=== PATIENT | female | born 1990 | race Caucasian/White ===

== ENCOUNTER 2019-10-23 00:22 | Emergency (ER) | payer BC ==
[~2019-10-23] VITALS: Ht 172.7 cm; Wt 64.0 kg
[2019-10-23 00:52] VITALS: BP 137/91
[2019-10-23] MEDS ORDERED: HYDROcodone/acetaminophen 10/325mg tab PO STA (00:54)
--- NOTE | 2019-10-23 00:54 | NUR ---
informed MD that pt is laying in bed crying, he said I could give her a norco 10/so ordered.
[2019-10-23] MEDS ORDERED: albuterol 2.5 MG/3 ML nebule NEB ONE (01:40)
[2019-10-23] MEDS ORDERED: benzonatate 100mg capsule PO ONE (01:40)
[2019-10-23] MEDS ORDERED: ALBU6.7H9 INH (01:40)
[2019-10-23] MEDS ORDERED: dexamethasone 4mg tablet PO ONE (01:40)
[2019-10-23] MEDS ORDERED: BENZ-16 PO (01:40)
[2019-10-23] MEDS ORDERED: diphenhydrAMINE 25 MG/10 ML UD oral solution PO ONE (01:40)
[2019-10-23] MEDS ORDERED: NAPR-56 PO (01:40)
== END 2019-10-23 02:06 | disposition home or self-care (01) ==
LOC: ER 00:24
DX: R07.81 Pleurodynia (principal); B34.9 Viral infection, unspecified; R05 Cough; R09.3 Abnormal sputum; J45.909 Unspecified asthma, uncomplicated; Z88.2 Allergy status to sulfonamides; Z88.8 Allergy status to other drugs, medicaments and biological substances; Z79.899 Other long term (current) drug therapy
CPT/HCPCS: 71045; 94640; 99284; Q0163; 94760